=== PATIENT | male | born 1985 | race Caucasian/White ===

== ENCOUNTER 2017-01-31 11:06 | Emergency (ER) | payer OTHER ==
[~2017-01-31] VITALS: Ht 172.7 cm; Wt 81.6 kg
[2017-01-31 11:12] VITALS: BP 162/104
--- NOTE | 2017-01-31 11:24 | NUR ---
Patient ambulated to bed 12. RN evaluating patient at bedside.
--- NOTE | 2017-01-31 11:25 | NUR ---
PATIENT PRESENTS TO ED WITH c/o partial amputation right 5th distal digit tip s/p car weeks slammed down on digit while pt working on car x yesterday pulsating pain hx---esrd (dialysis m,w,f) LUE A/V fistula, htn, rx---hydralazine, lisinopril, renavite; DENIES N/V/D; SKIN IS PINK/WARM/DRY; AAOX4 WITH EVEN AND STEADY GAIT; LUNGS CLEAR BL; HR EVEN AND REGULAR; PT DENIES ANY FEVER, CP, SOB, OR COUGH AT THIS TIME; PATIENT STATES PAIN OF 4/10 AT THIS TIME; VSS; PATIENT POSITIONED FOR COMFORT; HOB ELEVATED; BEDRAILS UP X2; BED DOWN. ER MD MADE AWARE OF PT STATUS.
--- NOTE | 2017-01-31 11:32 | NUR ---
obstetrics tech at bedside.
--- NOTE | 2017-01-31 12:07 | NUR ---
Dr. Rocha evaluating patient at bedside.
[2017-01-31] MEDS ORDERED: BACITRACIN OINT 500 UNITS/GM PKT TP ONE (12:15)
[2017-01-31] MEDS ORDERED: KETOROLAC 60 MG/2 ML VIAL IM ONE (12:15)
[2017-01-31 12:46] VITALS: BP 145/94
--- NOTE | 2017-01-31 12:46 | NUR ---
Patient discharged with v/s stable. Written and verbal after care instructions given and explained. Patient alert, oriented and verbalized understanding of instructions. Ambulatory with steady gait. All questions addressed prior to discharge. ID band removed. Patient advised to follow up with PMD. Rx of NORCO, MOTRIN given. Patient educated on indication of medication including possible reaction and side effects. Opportunity to ask questions provided and answered.
== END 2017-01-31 12:46 | disposition home or self-care (01) ==
LOC: MED 11:06
DX: S69.81XA Other specified injuries of right wrist, hand and finger(s), initial encounter (principal); E11.9 Type 2 diabetes mellitus without complications; I10 Essential (primary) hypertension; X58.XXXA Exposure to other specified factors, initial encounter; Y93.89 Activity, other specified; Y92.89 Other specified places as the place of occurrence of the external cause; Y99.8 Other external cause status
CPT/HCPCS: 73140; 90471; 90715; 96372; 99284; J1885; Q0092

== ENCOUNTER 2018-06-21 10:55 | Inpatient (IN) | payer OTHER ==
[~2018-06-21] VITALS: Ht 172.7 cm; Wt 89.1 kg
[2018-06-21 10:59] VITALS: BP 203/125
--- NOTE | 2018-06-21 11:40 | NUR ---
PT AMBULATED TO ER BED 12
[2018-06-21] MEDS ORDERED: KETOROLAC 30 MG/ML VIAL IVP ONE (12:10)
[2018-06-21] MEDS ORDERED: NACL 0.9% 1,000 ML IV ONE (12:10)
--- NOTE | 2018-06-21 12:24 | NUR ---
Confirmed 1000ml ns bolus Dr. Greer due to pt being on dialysis, per Dr. Greer, he is aware and would still like to give the fluids
--- NOTE | 2018-06-21 12:30 | NUR ---
PT IS ANURIC, UNABLE TO COLLECT URINE SAMPLE. DR. MCKEON MADE AWARE AND WILL CANCEL ORDER.
[2018-06-21 12:35] LABS: BASOPHILS # (AUTO) 0.1 K/uL (0.00-0.22); BASOPHILS % (AUTO) 1.2 % (0.0-2.0); EOSINOPHILS # (AUTO) 0.3 K/uL (0-0.4); EOSINOPHILS % (AUTO) 5.5 % (0.0-4.0); HEMATOCRIT 33.8 % (36-52); HEMOGLOBIN 11.6 g/dL (12.0-18.0); LYMPHOCYTES # (AUTO) 1.2 K/uL (2.0-11.5); LYMPHOCYTES % (AUTO) 19.3 % (20.5-51.1); MEAN CORPUSCULAR HEMOGLOBIN 32 pg (27-31); MEAN CORPUSCULAR HGB CONC 34 g/dL (33-37); MEAN CORPUSCULAR VOLUME 92.7 fL (80-94); MONOCYTES # (AUTO) 0.5 K/uL (0.8-1.0); MONOCYTES % (AUTO) 7.7 % (1.7-9.3); NEUTROPHILS # (AUTO) 4.1 K/uL (1.8-7.7); NEUTROPHILS % (AUTO) 66.3 % (42.2-75.2); PLATELET COUNT (AUTO) 113 K/uL (140-450); RED BLOOD CELL COUNT(AUTO) 3.64 MIL/uL (4.20-6.10); RED CELL DISTRIBUTION WIDTH 14.8 % (11.6-13.7); WHITE BLOOD COUNT (AUTO) 6.2 K/uL (4.8-10.8)
[2018-06-21] MEDS ORDERED: PIPERACILLIN/TAZOBACTAM 3.375 GM in DEXTROSE 5% 50 ML IV ONE (12:40)
--- NOTE | 2018-06-21 12:48 | NUR ---
C/O TESTICULAR PAIN X3 DAYS. PT DENIES N/V/D/FEVER OR INJURY/TRAUMA. PT HAS HD FISTULA TO L UPPER ARM AND IS ANURIC. SCROTUM IS RED/SWOLLEN AND HAS WHITE FLUID FILLED ABCESS-LIKE BUMPS TO L SIDE.
[2018-06-21 12:50] LABS: ALBUMIN 3.5 g/dL (3.4-5.0); TOTAL BILIRUBIN 0.5 mg/dL (0.0-1.0)
[2018-06-21 12:53] LABS: ANION GAP 14.8 (8-16); CREATININE 11.7 mg/dL (0.7-1.3)
[2018-06-21 12:54] LABS: POTASSIUM 5.8 mmol/L (3.5-5.1)
[2018-06-21] MEDS ORDERED: PIPERACILLIN/TAZOBACTAM 3.375 GM VIAL IV ONE (13:01)
[2018-06-21] MEDS ORDERED: PATIROMER CALCIUM SORBITEX 8.4 GM PKT PO ONE ×2 (14:30→16:50)
--- NOTE | 2018-06-21 15:42 | NUR ---
PENDING TRANSFER TO [facility]
--- NOTE | 2018-06-21 16:20 | NUR ---
PT WILL BE ADMITTED TO [facility]
[2018-06-21] MEDS ORDERED: ACETAMINOPHEN 325 MG TAB PO PRN (16:55)
[2018-06-21] MEDS ORDERED: LORazepam 2 MG/ML VIAL IM/IVP PRN (16:55)
[2018-06-21] MEDS ORDERED: HYDROcodone/APAP 5/325 MG 1 TAB TAB PO PRN (16:55)
[2018-06-21] MEDS ORDERED: DOCUSATE SODIUM 100 MG GELCAP PO PRN (16:55)
[2018-06-21] MEDS ORDERED: ONDANSETRON 4 MG/2 ML VIAL IM/IVP PRN (16:55)
--- NOTE | 2018-06-21 17:20 | NUR ---
PT ARRIVED TO FLOOR FROM ER IN WHEELCHAIR, PT AMBULATES FROM HALLWAY TO BED WITH STEADY GAIT, PT ORIENTED TO ROOM AND FLOOR, PT AWAKE ALERT, RESP EVEN UNLABORED, SKIN WARM DRY COLOR WNL, PLAN OF CARE REVIEWED, ALL SAFETY MEASURES IN PLACE, WILL CONTINUE TO MONTIOR
--- NOTE | 2018-06-21 17:25 | NUR ---
Patient will be admitted to care of DR. WARE. Admited to MED SURG. Will go to room 125B. Belongings list completed. Report to JATIN GIANG.
[2018-06-21 17:40] VITALS: BP 178/116
--- NOTE | 2018-06-21 18:00 | NUR ---
DR HONG AT BEDSIDE.
--- NOTE | 2018-06-21 18:29 | NUR ---
DR TAVERA PAGED AND RECEIVED HD ORDER.
--- NOTE | 2018-06-21 18:30 | NUR ---
[facility] NURSE CALLED FOR NEW ORDER FOR DIALYSIS TODAY.
[2018-06-21 18:40] LABS: MAGNESIUM 2.6 mg/dL (1.8-2.4); PHOSPHORUS 6.7 mg/dL (2.5-4.9); THYROID STIMULATING HORMONE 2.71 uIU/mL (0.34-3.74)
[2018-06-21 18:47] LABS: POTASSIUM 5.6 mmol/L (3.5-5.1)
[2018-06-21] MEDS ORDERED: CINA60TA1 PO (18:55)
[2018-06-21] MEDS ORDERED: PHO667 PO (18:55)
[2018-06-21] MEDS ORDERED: VITA1TAB44 PO (18:55)
[2018-06-21] MEDS ORDERED: HYDR-1098 PO (18:55)
[2018-06-21 19:01] LABS: ANION GAP 18.2 (8-16); CARBON DIOXIDE 26.4 mmol/L (21-32)
[2018-06-21] MEDS ORDERED: ZOLPIDEM 5 MG TAB PO PRN (19:15)
--- NOTE | 2018-06-21 19:35 | NUR ---
RECEIVED REPORT FROM DAY SHIFT RN. PATIENT IS ALERT AND ORIENTED. BP AND POTASSIUM ARE ELEVATED. PATIENT WILL RECEIVE DIALYSIS TONIGHT. CALL LIGHT IN REACH AND BED IN LOW POSITION. WILL CONTINUE TO MONITOR.
[2018-06-21 20:00] VITALS: BP 158/97
[2018-06-21] MEDS: MORPHINE SULFATE 2 MG/ML SYR IVP PRN (20:43)
--- NOTE | 2018-06-21 20:43 | NUR ---
PATIENT C/O 09/01 PAIN. MEDICATED WITH PRN MEDICATIONS. OTHERWISE PATIENT IS STABLE.
--- NOTE | 2018-06-21 21:30 | NUR ---
DIALYSIS NURSE ARRIVED AND IS DIALYZING PATIENT. NO SIGNS OF DISTRESS ON RA. WILL CONTINUE TO MONITOR.
[2018-06-22] VITALS: BP 134/87
[2018-06-22] MEDS ORDERED: CLINDAMYCIN 600 MG in DEXTROSE 5% 50 ML IV SCH ×2
--- NOTE | 2018-06-22 00:45 | NUR ---
DIALYSIS COMPLETE. 4L OF FLUID REMOVED. BP 134/87 DOWN FRO M158/97 PRIOR TO DIALYSIS. NO SIGNS OF DISTRESS ON RA. WILL CONTINUE TO MONITOR.
[2018-06-22] MEDS: MORPHINE SULFATE 2 MG/ML SYR IVP PRN ×5 (01:53→21:04)
[2018-06-22] MEDS: CLINDAMYCIN PHOS 600MG/D5W PM 50 ML IV SCH ×4 (01:54→17:02)
[2018-06-22] MEDS: NACL 0.9% 1,000 ML IV SCH ×2 (01:54→17:01)
--- NOTE | 2018-06-22 02:18 | NUR ---
PATIENT C/O 10/10 PAIN AFTER AMBULATING. MEDICATED PER PRN ORDERS. PATIENT NO RESTING IN BED, NO SIGNS OF DISTRESS ON RA. SAFETY PRECAUTIONS IN PLACE.
--- NOTE | 2018-06-22 04:30 | NUR ---
PATIENT SLEEPING. NO SIGNS OF DISTRESS ON RA.
--- NOTE | 2018-06-22 06:00 | NUR ---
PATIENT RESTING IN BED. C/O PAIN. WILL MEDICATE PER PRN ORDERS
[2018-06-22 06:52] LABS: ANION GAP 13.6 (8-16); POTASSIUM 4.6 mmol/L (3.5-5.1)
[2018-06-22 06:56] LABS: CHOL/HDL RATIO 3.2 (1-4.5)
[2018-06-22 06:59] LABS: PHOSPHORUS 7.3 mg/dL (2.5-4.9)
[2018-06-22 07:28] LABS: BASOPHILS # (AUTO) 0.1 K/uL (0.00-0.22); BASOPHILS % (AUTO) 1.4 % (0.0-2.0); EOSINOPHILS # (AUTO) 0.5 K/uL (0-0.4); EOSINOPHILS % (AUTO) 10.4 % (0.0-4.0); HEMATOCRIT 35.7 % (36-52); HEMOGLOBIN 12.2 g/dL (12.0-18.0); LYMPHOCYTES # (AUTO) 1.3 K/uL (2.0-11.5); LYMPHOCYTES % (AUTO) 25.8 % (20.5-51.1); MEAN CORPUSCULAR HEMOGLOBIN 32 pg (27-31); MEAN CORPUSCULAR HGB CONC 34 g/dL (33-37); MEAN CORPUSCULAR VOLUME 92.8 fL (80-94); MONOCYTES # (AUTO) 0.4 K/uL (0.8-1.0); MONOCYTES % (AUTO) 7.8 % (1.7-9.3); NEUTROPHILS # (AUTO) 2.7 K/uL (1.8-7.7); NEUTROPHILS % (AUTO) 54.6 % (42.2-75.2); PLATELET COUNT (AUTO) 113 K/uL (140-450); RED BLOOD CELL COUNT(AUTO) 3.85 MIL/uL (4.20-6.10); RED CELL DISTRIBUTION WIDTH 14.8 % (11.6-13.7); WHITE BLOOD COUNT (AUTO) 4.9 K/uL (4.8-10.8)
--- NOTE | 2018-06-22 07:30 | NUR ---
REPORT RECIEVED FROM NURSE ROSIO, PT ASLEEP, EASILY AROUSABLE TO A/O APPROPRIATE AND ABLE TO COMMUNICATE NEEDS. DENIES PAIN, VISITORS AT BEDSIDE. CALL LIGHT, PERSONAL ITEMS WITHIN REACH, SAFETY MEASURES IN PLACE, NO S/S OF ACUTE DISTRESS AT THIS TIME, WILL CONTINUE TO MONITOR
--- NOTE | 2018-06-22 07:30 | NUR ---
GAVE BEDSIDE REPORT TO DAY SHIFT RN. ENDORSING PATIENT IN STABLE CONDITION.
[2018-06-22 07:32] LABS: CREATININE 7.9 mg/dL (0.7-1.3)
[2018-06-22] MEDS: CALCIUM ACETATE 667 MG TAB PO SCH ×3 (07:59→17:02)
[2018-06-22 08:00] VITALS: BP 160/89
[2018-06-22] MEDS ORDERED: CALCIUM ACETATE 667 MG TAB PO SCH (08:00)
--- NOTE | 2018-06-22 08:30 | NUR ---
PATIENT HAS BEEN SCREENED AND CATEGORIZED MODERATE NUTRITION RISK. PATIENT WILL BE SEEN WITHIN 3-5 DAYS OF ADMISSION. 06/24/18CRISTY [address]
[2018-06-22] MEDS ORDERED: CINACALCET 30 MG TAB PO SCH ×2 (09:00)
[2018-06-22] MEDS ORDERED: hydrALAZINE 25 MG TAB PO SCH ×2 (09:00)
[2018-06-22] MEDS ORDERED: VIT-B COMP/VIT-C/FOLIC ACID 1 TAB PO SCH ×2 (09:00)
--- NOTE | 2018-06-22 09:26 | NUR ---
Called [facility] and spoke with Nitin. He said [facility] will continue to look for placement for this patient and as soon as they have a bed, they will contact or the floor if it is after hours.
--- NOTE | 2018-06-22 09:40 | NUR ---
PT AWAKE A/O AND APPROPRIATE, ABLE TO COMMUNICATE NEEDS. PER PT PAIN TOLERABLE AT THIS TIME, INTERMITTENT WITH MOVEMENT. CALL LIGHT, PERSONAL ITEMS WITHIN REACH, SAFETY MEASURES IN PLACE, NO S/S OF ACUTE DISTRESS AT THIS TIME, WILL CONTINUE TO MONITOR
--- NOTE | 2018-06-22 10:43 | NUR ---
AEROBIC/ANAEROBIC CULTURE OBTAINED FROM TESTICLE AND DELIVERED TO LAB, PT TOLERATED COLLECTION WELL. PT REMAIN A/O APPROPRIATE AND ABLE TO COMMUNICATE NEEDS, CALL LIGHT, PERSONAL ITEMS WITHIN REACH, SAFETY MEASURES IN PLACE, NO S/S OF ACUTE DISTRESS AT THIS TIME, WILL CONTINUE TO MONITOR.
--- NOTE | 2018-06-22 13:30 | NUR ---
PT SLEEPING AT THIS TIME, EASILY AROUSABLE TO VERBAL STIMULI TO A/O, VISITORS AT BEDSIDE. CALL LIGHT, PERSONAL ITEMS WITHIN REACH, SAFETY MEASURES IN PLACE, NO S/S OF ACUTE DISTRESS AT THIS TIME, WILL CONTINUE TO MONITOR
--- NOTE | 2018-06-22 14:44 | NUR ---
CALLED DR WRIGHT OFFICE TO FOLLOW UP ON CONSULT PER CHARGE NURSE. TO MAKE ROUNDS.
--- NOTE | 2018-06-22 15:59 | NUR ---
PAGED [facility] FOR PT'S SCHEDULED HD TOMORROW 06/23/2018. AWAITING FOR CALL BACK.
--- NOTE | 2018-06-22 16:22 | NUR ---
RECEIVED A CALL FROM NANCY FROM [facility], . SHE SAID THEY WILL ARE LOOKING AT TRANSFERRING THIS PATIENT TO [facility]. , CONTRACTER FACILITY. [address]ESS [address] [address] [address] PHONE [phone]. AFTER HOURS FOR [facility] IS [phone]. THE ACCEPTING PHYSICIAN IS DR. ACEVEDO AND DR. DENNY. I TOLD NANCY FROM [facility] TO CALL THE FLOOR WHEN THEY GET A BED. GAVE HER THE PHONE NUMBER. I INFORMED [employer] TRANSFER COORDINATOR NURSE. PER NANCY, PUT [facility] ON WILL CALL AUTH [id number]. I INFORMED DR. HONG.
--- NOTE | 2018-06-22 16:30 | NUR ---
PT ASLEEP VISITORS AT BEDSIDE, PT PAIN MANAGED WITH MEDICATION, COMFORTABLE AT REST. CALL LIGHT, PERSONAL ITEMS WITHIN REACH, SAFETY MEASURES IN PLACE, NO S/S OF ACUTE DISTRESS AT THIS TIME, WILL CONTINUE TO MONITOR
[2018-06-22 16:50] VITALS: BP 165/90
--- NOTE | 2018-06-22 16:53 | NUR ---
RECEIVED A CALL FROM NANCY ([facility]) THAT THEY ARE DIVERTING PT TO [facility], ADDRESS: [address] [place], [place] [id number], TEL #: [phone]. NO BED AVAILABLE AT THIS TIME. NANCY STATED THEY WILL CALL THE NURSES STATION WHEN BED BECOMES AVAILABLE. NURSE ASSIGNED MADE AWARE.
--- NOTE | 2018-06-22 17:15 | NUR ---
PT A/O APPROPRIATE AND ABLE TO COMMUNICATE NEEDS, VISITORS AT BEDSIDE, NOTIFIED OF PENDING TRANSFER TO CONTRACTED FACILITY, PT VERBALIZES UNDERSTANDING AND IS AGREEABLE. NO S/S OF ACUTE DISTRESS NOTED AT THIS TIME, CALL LIGHT, PERSONAL ITEMS WITHIN REACH, SAFETY MEASURES IN PLACE, WILL CONTINUE TO MONITOR.
--- NOTE | 2018-06-22 19:00 | NUR ---
RECEIVED A CALL FROM YORDY FROM [facility] THAT THEY HAVE A BED FOR PT AT [facility] ROOM 7320. TO CALL FOR REPORT: TEL#: [phone]. [facility] ON WILL CALL, AUTH #: [id number]. ENDORSED TO NEXT SHIFT CHARGE NURSE AND ASSIGNED NURSE TO CONTINUE WITH THE DISCHARGE PROCESS.
[2018-06-22] MEDS ORDERED: CLIN300C2 IV (19:06)
[2018-06-22] MEDS ORDERED: HYDR-4420 PO (19:06)
--- NOTE | 2018-06-22 19:44 | NUR ---
REPORT ENDORSED TO NURSE ROSIO, PT REMAIN A/O APPROPRIATE AND ABLE TO COMMUNICATE NEEDS, NO S/S OF ACUTE DISTRESS NOTED AT THIS TIME, CALL LIGHT, PERSONAL ITEMS WITHIN REACH, SAFETY MEASURES IN PLACE.
--- NOTE | 2018-06-22 19:45 | NUR ---
RECEIVED BEDSIDE REPORT FROM DAY SHIFT RN. PATIENT STABLE, NO SIGNS OF DISTRESS ON RA.
[2018-06-22 20:59] VITALS: BP 143/93
--- NOTE | 2018-06-22 21:38 | NUR ---
GAVE REPORT TO RAHAT URBAN AT TRANSFER FACILITY. SEE DISCHARGE INSTRUCTIONS FOR ADDITIONAL DETAILS.
--- NOTE | 2018-06-22 22:40 | NUR ---
GAVE REPORT TO [facility] TRANSPORT FOR PATIENT TRANSFER TO ANOTHER FACILITY. PATIENT STABLE, AMBULATED TO [facility] WEARING HIS OWN CLOTHES. PERIPHERAL IV 20G IN RIGHT AC IN PLACE DUE TO RECEIVING FACILITY REQUEST. PATIENT HAD HIS PROPERTY BAG IN HAND AT TRANSFER.
[2018-06-24 20:25] LABS: HEPATITIS A ANTIBODY IGM Negative (Negative); HEPATITIS B CORE AB TOTAL Negative (Negative); HEPATITIS B SURFACE ANTIBODY Reactive (.); HEPATITIS B SURFACE ANTIGEN Negative (Negative)
== END 2018-06-22 22:20 | disposition short-term general hospital (02) | DRG 727 ==
LOC: MED 10:55 → MTU 16:51
PROVIDERS: ADMIT General Practice; ATTEND General Practice
PROC: 5A1D70Z Performance of Urinary Filtration, Intermittent, Less than 6 Hours Per Day (ICD-10-PCS; principal; 2018-06-21)
DX: N49.2 Inflammatory disorders of scrotum (principal); I50.43 Acute on chronic combined systolic (congestive) and diastolic (congestive) heart failure; N17.0 Acute kidney failure with tubular necrosis; N18.6 End stage renal disease; I13.2 Hypertensive heart and chronic kidney disease with heart failure and with stage 5 chronic kidney disease, or end stage renal disease; N25.81 Secondary hyperparathyroidism of renal origin; E83.39 Other disorders of phosphorus metabolism; E11.22 Type 2 diabetes mellitus with diabetic chronic kidney disease; E87.5 Hyperkalemia; Z80.0 Family history of malignant neoplasm of digestive organs; I16.0 Hypertensive urgency; D50.9 Iron deficiency anemia, unspecified; E83.41 Hypermagnesemia; E66.9 Obesity, unspecified; L72.0 Epidermal cyst; R59.1 Generalized enlarged lymph nodes; Z99.2 Dependence on renal dialysis; Z79.899 Other long term (current) drug therapy; Z68.30 Body mass index [BMI] 30.0-30.9, adult
CPT/HCPCS: 36415; 71045; 76870; 80048; 80053; 83036; 83605; 83690; 83735; 83880; 84100; 84443; 84484; 85025; 85610; 85730; 86704; 86706; 86708; 86709; 86803; 87040; 87070; 87075; 87081; 87186; 87205; 87340; 90935; 93005; 96365; 96375; 99285; J1885; J2270; J2543; J3490; J7030; J7060; Q0092

== ENCOUNTER 2018-08-06 11:25 | Emergency (ER) | payer OTHER ==
[~2018-08-06] VITALS: Ht 175.3 cm; Wt 90.3 kg
[~2018-08-06 11:25] MED LIST: CINA60TA1 PO; CLIN300C2 IV; HYDR-4420 PO; PHO667 PO; VITA1TAB44 PO
[2018-08-06 11:29] VITALS: BP 180/130
--- NOTE | 2018-08-06 11:35 | NUR ---
BIB SELF. AAO X4 C/O LOW BACK PAIN RADIATING TO RT BUTTOCKS AND RT THIGH. PT STATES THAT HE FELT LIKE HIS BACK SNAPPED UPON STEPPING ON SOMEONE'S FOOT BACK IN APRIL AND THE PAIN IS WORSENING TIL NOW. PT TOOK TYLENOL AT 0630 AM WITH RELIEF FOR THE FIRST 2 HOURS AND ICY HOT PATCH APPLIED WITH NO RELIEF. PT HAS STEADY GAIT. +CMS TO LACY LEGS. ER TO EVALUATE PT.
--- NOTE | 2018-08-06 11:54 | NUR ---
Dr. Monahan evaluating patient at bedside.
[2018-08-06] MEDS ORDERED: DEXAMETHASONE 10 MG/ML VIAL IM ONE (12:00)
[2018-08-06] MEDS ORDERED: MORPHINE SULFATE 4 MG/ML SYR IM ONE (12:00)
--- NOTE | 2018-08-06 12:21 | NUR ---
Dr. Monahan evaluating patient at bedside.
--- NOTE | 2018-08-06 13:12 | NUR ---
IM MORPHINE WAS GIVEN ORDERED FOR PAIN. PT DENIES ANY PAIN AT THIS TIME. PT TEACHING OF DROWSINESS A SIDE EFFECT OF MORPHINE. PT VERBALIZES UNDERSTANDING. PT STATES THAT HE WILL CALL TRANSPORTATION SERVICE, [facility], TO TAKE HIM HOME.
[2018-08-06 13:18] VITALS: BP 144/90
--- NOTE | 2018-08-06 13:18 | NUR ---
Patient discharged with v/s stable. Written and verbal after care instructions given and explained. Patient alert, oriented and verbalized understanding of instructions. Ambulatory with steady gait. All questions addressed prior to discharge. ID band removed. Patient advised to follow up with PMD. Rx of Tramadol Hydrochloride given. Patient educated on indication of medication including possible reaction and side effects. Opportunity to ask questions provided and answered.
== END 2018-08-06 13:18 | disposition home or self-care (01) ==
LOC: MED 11:25
DX: S39.012A Strain of muscle, fascia and tendon of lower back, initial encounter (principal); I12.0 Hypertensive chronic kidney disease with stage 5 chronic kidney disease or end stage renal disease; N18.6 End stage renal disease; Z79.899 Other long term (current) drug therapy; Z99.2 Dependence on renal dialysis; X58.XXXA Exposure to other specified factors, initial encounter; Y93.89 Activity, other specified; Y92.89 Other specified places as the place of occurrence of the external cause; Y99.8 Other external cause status
CPT/HCPCS: 96372; 99283; J1100; J2270

== ENCOUNTER 2019-02-26 12:23 | Inpatient (IN) | payer OTHER ==
[~2019-02-26] VITALS: Ht 175.3 cm; Wt 85.7 kg
[2019-02-26 12:42] VITALS: BP 143/87
--- NOTE | 2019-02-26 12:48 | NUR ---
Patient transferred to bed 3 via wheelchair by triage nurse. RN evaluating patient at bedside.
[2019-02-26] MEDS ORDERED: MORPHINE SULFATE 4 MG/ML SYR IVP ONE ×4 (13:00→16:35)
[2019-02-26] MEDS ORDERED: ONDANSETRON 4 MG/2 ML VIAL IVP ONE (13:00)
--- NOTE | 2019-02-26 13:24 | NUR ---
WHILE CHANGING TIRES IN A SQUAT POSITION ; FELL BACKWARDS WITH TIRE AND FELT POP IN KNEES----OBVIOUS DISLOCATIONS.PT AWAKE ,ALERT.EQUAL STEADY PULSE ON ALL UE/LE. RIGHT ELBOW CONTUSION HX--ESRD ( M W F), HTN, RX--
[2019-02-26 16:03] LABS: BASOPHILS % (AUTO) 0.5 % (0.0-2.0); EOSINOPHILS # (AUTO) 0.2 K/uL (0-0.4); EOSINOPHILS % (AUTO) 2.9 % (0.0-4.0); HEMATOCRIT 32.1 % (36-52); HEMOGLOBIN 10.9 g/dL (12.0-18.0); LYMPHOCYTES # (AUTO) 0.8 K/uL (2.0-11.5); LYMPHOCYTES % (AUTO) 11.8 % (20.5-51.1); MEAN CORPUSCULAR HEMOGLOBIN 33 pg (27-31); MEAN CORPUSCULAR HGB CONC 34 g/dL (33-37); MEAN CORPUSCULAR VOLUME 97.9 fL (80-94); MONOCYTES # (AUTO) 0.3 K/uL (0.8-1.0); MONOCYTES % (AUTO) 5.2 % (1.7-9.3); NEUTROPHILS # (AUTO) 5.2 K/uL (1.8-7.7); NEUTROPHILS % (AUTO) 79.6 % (42.2-75.2); PLATELET COUNT (AUTO) 127 K/uL (140-450); RED BLOOD CELL COUNT(AUTO) 3.28 MIL/uL (4.20-6.10); RED CELL DISTRIBUTION WIDTH 13.9 % (11.6-13.7); WHITE BLOOD COUNT (AUTO) 6.5 K/uL (4.8-10.8)
--- NOTE | 2019-02-26 16:23 | NUR ---
dr zarate at bedside.
[2019-02-26 16:43] LABS: ALBUMIN 3.5 g/dL (3.4-5.0); ASPARTATE AMINOTRANSFERASE 18 U/L (15-37); CARBON DIOXIDE 28.5 mmol/L (21-32); CHLORIDE 98 mmol/L (98-107); GFR ARICAN-AMERICAN 6 mL/min (>90); GLUCOSE 102 mg/dL (74-106); SODIUM SERUM 137 mmol/L (136-145); TOTAL BILIRUBIN 0.4 mg/dL (0.0-1.0); UREA NITROGEN, BLOOD 55 mg/dL (7-18)
--- NOTE | 2019-02-26 16:50 | NUR ---
Critical lab of 8.5 received from lab, Dr. House made aware, verbal order for repeat draw. Lab made aware.
[2019-02-26 17:21] LABS: PROTHROMBIN TIME 10.2 secs (10.8-13.4)
[2019-02-26] MEDS ORDERED: oxyCODONE/APAP 5/325 MG 1 TAB TAB PO ONE (17:50)
--- NOTE | 2019-02-26 18:07 | NUR ---
Critical lab called potassium 8.[address] House made aware. Dr. House requesting to call leather goods ii assembler.
[2019-02-26] MEDS ORDERED: INSULIN REGULAR, HUMAN 100 UNIT/ML VIAL IVP ONE (18:20)
[2019-02-26] MEDS ORDERED: DEXTROSE 50% 50 ML SYR IVP ONE (18:20)
[2019-02-26] MEDS ORDERED: SODIUM BICARBONATE 8.4% PFS 50 MEQ/50 ML SYR IVP ONE (18:20)
[2019-02-26] MEDS ORDERED: LISI10TA11 PO (18:24)
[2019-02-26] MEDS ORDERED: ACETAMINOPHEN 325 MG TAB PO PRN (18:40)
[2019-02-26] MEDS ORDERED: ONDANSETRON 4 MG/2 ML VIAL IVP PRN (18:40)
--- NOTE | 2019-02-26 19:14 | NUR ---
PLACED KNEE IMMOBOLIZER ON PT'S LEFT AND RIGHT KNEE AND THEN GAVE PT CRUTCHES
--- NOTE | 2019-02-26 19:24 | NUR ---
report given to julianne.
--- NOTE | 2019-02-26 19:25 | NUR ---
PATIENT ALERT AND ORIENTED, BREATHING EVEN AND UNLABORED. FAMILY AT BEDSIDE.
[2019-02-26 19:48] LABS: MAGNESIUM 2.3 mg/dL (1.8-2.4); PHOSPHORUS 7.2 mg/dL (2.5-4.9); THYROID STIMULATING HORMONE 3.33 uIU/mL (0.34-3.74)
--- NOTE | 2019-02-26 19:55 | NUR ---
PATIENT CAME IN FROM ER VIA ER [facility]. STAFF AND CHARGE NURSE ASSISTED PATIENT TO ICU BED FROM ER [facility]. NURSE TO BEDSIDE WHEN PATIENT WAS ALREADY IN ICU BED. NO INJURIES NOTED. PATIENT ABLE TO ASSIST MOVING LEFT AND RIGHT IN BED WITH THE PRESENCE OF 2 KNEE IMMOBILIZERS PLACED ON BILATERALLY. ROOM AIR.PERRLA. PUPILS SIZE 2. REACTIVE. NO SOB OR DISTRESS NOTED. SKIN COLOR WNL. VSS. HR REGULAR. LUNG SOUNDS CLEAR. RESPIRATIONS SYMMETRICAL AND UNLABORED. PATIENT HAS FISTULA FOR DIALYSIS IN LEFT UPPER ARM. IV ACCESS RIGHT AC 22G. BOTH KNEES SWOLLEN BLACK AND BLUE. ABLE TO MOVE BOTH FEEL WITH GOOD SKIN COLOR. AAOX4. ABLE TO MAKE NEEDS KNOWN. STATES WAS CHANGE A BIG TRUCK TIRE AND TIRE CAME OFF AND FELL ON KNEES STATES HEARD A POP STATES VELÁSQUEZ STATED "TENDONS POPPED" BP CUFF ON RIGHT ARM. DIME SIZE RED/NEW ABRASION TO RIGHT OUTER ELBOW WITH PINK SKIN SURROUNDING. REPORT FROM ER HUY NURSE AT BEDSIDE. GIRLFRIEND DENNIS PRESENT. SIGNED PAPER WITH HAYLEE OF BELONGINGS STATING THAT GIRLFRIEND TOOK BELONGINGS BUT ONLY KEPT PHONE AT BEDSIDE, AGRICULTURE ENGINEER AT BEDSIDE AND GLASSESS AT BEDSIDE. BOTH ARE BLACK IN COLOR. MRSA SWABS TAKEN BY LION NURSE. NURSE BS WAS JUST TAKEN AND WAS 67. GIRLFRIEND TOLD OK TO GIVE PROPER DIET MEDICATION FOR PATIENT. WAS EATING FOOD IN ER. CRITICAL POTASSIUM PER ER REPORT SO GETTING STAT DIALYSIS. PATIENT WAS REFERRED TO [facility]. HAS HAD FISTULA X8 YEARS. 2009 [facility] FOR DIALYSIS ARRIVES AT BEDSIDE STATES VELÁSQUEZ PERSONALLY CALLED AND STATES NEED TO BE AT HOSPITAL WITHIN 30 MINUTES PER LINDSAY". EDUCATION ON DIET GIVEN AND PROPER FOODS. 2000 CALLED FAMILY WHO WAS IN WAITING ROOM. CRUTCHES PRESENT FROM ER. BOWEL SOUNDS ACTIVE IN ALL 4 QUAD. BED IN LOWEST POSITION. VSS. ABLE TO MAKE NEEDS KNOWN Addendum: 02/27/19 at 0736 by Betzy Ewing RN NOTED RIGHT DIME SIZE ABRASION ON RIGHT ELBOW. STATES ER ALREADY TOOK PICTURES OF IT AND PLACED IN CHART. TOOK PICTURES OF ABRASION AND OF BILATERAL KNEES FOR OUR REPORTS. WILL CONTINUE TO MONITOR.
[2019-02-26 20:00] VITALS: BP 134/77
--- NOTE | 2019-02-26 20:00 | NUR ---
Patient will be admitted to care of DR WARE. Admited to ICU. Will go to room 2. Belongings list completed. Report to GERARDO GIANG.
[2019-02-26] MEDS: DOCUSATE SODIUM 100 MG GELCAP PO SCH (21:00)
--- NOTE | 2019-02-26 21:22 | NUR ---
PATIENT TURNING HSIEH COLOR. STOMACH PAIN. RESTLESS. INCREASED RESPIRATIONS. ICE WATER GIVEN. CHECKED BLOOD SUGAR 148. BED FROM DIALYSIS CALLED HIS PERSON AND STATES TURN DOEN DIALYSIS. STATES "DISEQUILIBRIUM SYNDROME" STATES PATIENT CREATININE AND BUN TOO ELEVATED AND NEEDS IT SLOWED DOWN PER HIS EVENTS TRAFFIC CONTROLLER. PATIENT DENIES ITCHING AT THIS TIME. 2124 PATIENT STATES "I FEEL BETTER "MUCH BETTER." SPOKE WITH MD AT THIS TIME WHO STATES OK TO GIVE MEDS WHILE ON DIALYSIS. PATIENT STRONGLY DENIES COLACE AT THIS TIME. STATES "THERE IS NO BATHROOM, ILL DO IT AT HOME" EDUCATED ON PROS AND CONS BY DIALYSIS NURSE AND PATIENTS NURSE. PATIENT STATES HE VERBALLY UNDERSTANDS BUT STILL DENIES. OK TO GIVE HIM HEPARIN. 2039 CALLED MD WHO STATES OK TO GIVE HEPARIN TO PATIENT AT THIS TIME NOTIFIED HIM LOW PLATELET COUNT 127. WHILE DIALYSIS RUNNING. 2019 ITCHY AT THIS TIME. WILL CONTINUE TO MONITOR. VSS.
[2019-02-26] MEDS: NACL 0.9% 1,000 ML IV SCH (21:35)
[2019-02-26 22:00] VITALS: BP 118/69
--- NOTE | 2019-02-26 22:25 | NUR ---
[facility] DIALYS[facility] STATES IN PRIVATE TO RN, HE HAD MARCK RAM BROUGHT TO HIM BY GIRLFRIEND. STATES ATE THE WHOLE BURGER, HALF A SMALL MORRISON. AND A LEMONADE DRINK. STATES NON- COMPLIANT WITH DIET. ENDORSE TO MD. MONTOYA AND NURSE GERARDO EDUCATED PATIENT AND GIRLFRIEND ABOUT THE IMPORTANCE OF PROPER DIET HABITS FOR PATIENTS SITUATION. BOTH VERBALLY AGREED AND NODDED THEY UNDERSTOOD. NO QUESTIONS AT THIS TIME. PATIENT PLAYING GAME ON PHONE. NO SOB OR DISTRESS NOTED. VSS AT THIS TIME WILL CONTINUE TO MONITOR.
[2019-02-26] MEDS: HYDROcodone/APAP 7.5/325 MG 1 TAB PO PRN (22:32)
--- NOTE | 2019-02-26 22:44 | NUR ---
PRINTED OUT CBC ,BMP, AND ORDER FOR DIALYSIS AND GAVE TO DIALYSIS NURSE LINDSAY. STATES NOTHING FURTHER NEEDED.
--- NOTE | 2019-02-26 23:15 | NUR ---
2.2 OUTPUT. DIALYSIS ENDED. PATIENTS VSS. NO SOB OR DISTRESS NOTED. WHEN ASKED IF FEELING OK AND IF PAIN MEDICATION HELPED, PATIENT STATES "HELL YEAH" THUMBS UP BY PATIENT.
--- NOTE | 2019-02-26 23:20 | NUR ---
ER BROUGHT OVER PAPER CONSENT FROM ER
[2019-02-27] VITALS (9 sets, daily range): BP systolic 107–146; BP diastolic 50–82
--- NOTE | 2019-02-27 00:09 | NUR ---
DR WALL AT BEDSIDE Addendum: 02/27/19 at 0142 by Betzy Ewing RN PATIENT PLAYING ON PHONE. GIRLFRIEND STILL PRESENT. VSS. NO SOB. NO DISTRESS NOTED.
--- NOTE | 2019-02-27 00:46 | NUR ---
LAB AT BEDSIDE Addendum: 02/27/19 at 0142 by Betzy Ewing RN PATIENT PLAYING ON PHONE. GIRLFRIEND STILL PRESENT. VSS. NO SOB. NO DISTRESS NOTED.
[2019-02-27 01:09] LABS: ANION GAP 12.9 (8-16); CARBON DIOXIDE 33.3 mmol/L (21-32); POTASSIUM 5.2 mmol/L (3.5-5.1)
[2019-02-27 01:11] LABS: CREATININE 7.8 mg/dL (0.7-1.3)
--- NOTE | 2019-02-27 01:32 | NUR ---
FOUND OUT ABOUT CRITICAL LAB VALUE THAT WAS RECORDED AT 0112 BY NURY FROM LAB. CREATININE 7.8. TRENDING DOWN. CALLED MD WALL AND NOTIFIED OF UPDATE. ALSO NOTIFIED OF POTASSIUM 5.2, BUN 27 ALSO TRENDING DOWN. WILL CONTINUE TO MONITOR. VSS. PATIENT PLAYING GAME ON CELL PHONE. GIRLFRIEND DENNIS AT BEDSIDE. NOTIFIED OF NEXT DUE PAIN MEDICATION TIME. WILL CONTINUE TO MONITOR.
[2019-02-27] MEDS: HYDROcodone/APAP 7.5/325 MG 1 TAB PO PRN ×2 (02:33→09:12)
--- NOTE | 2019-02-27 04:12 | NUR ---
PATIENT STILL PLAYING ON PHONE.AAOX4.ABLE TO MAKE NEEDS KNOWN. GIRLFRIEND AT BEDSIDE
[2019-02-27 05:17] LABS: BASOPHILS % (AUTO) 0.8 % (0.0-2.0); EOSINOPHILS # (AUTO) 0.2 K/uL (0-0.4); EOSINOPHILS % (AUTO) 3.5 % (0.0-4.0); HEMATOCRIT 28.9 % (36-52); HEMOGLOBIN 9.8 g/dL (12.0-18.0); LYMPHOCYTES # (AUTO) 1.1 K/uL (2.0-11.5); LYMPHOCYTES % (AUTO) 18.6 % (20.5-51.1); MEAN CORPUSCULAR HEMOGLOBIN 33 pg (27-31); MEAN CORPUSCULAR HGB CONC 34 g/dL (33-37); MEAN CORPUSCULAR VOLUME 98.2 fL (80-94); MONOCYTES # (AUTO) 0.4 K/uL (0.8-1.0); MONOCYTES % (AUTO) 7.6 % (1.7-9.3); NEUTROPHILS # (AUTO) 4.1 K/uL (1.8-7.7); NEUTROPHILS % (AUTO) 69.5 % (42.2-75.2); PLATELET COUNT (AUTO) 133 K/uL (140-450); RED BLOOD CELL COUNT(AUTO) 2.95 MIL/uL (4.20-6.10); RED CELL DISTRIBUTION WIDTH 13.7 % (11.6-13.7); WHITE BLOOD COUNT (AUTO) 5.9 K/uL (4.8-10.8)
[2019-02-27 05:45] LABS: ANION GAP 12.6 (8-16); CARBON DIOXIDE 33.5 mmol/L (21-32); POTASSIUM 5.1 mmol/L (3.5-5.1)
[2019-02-27 05:52] LABS: MAGNESIUM 1.9 mg/dL (1.8-2.4); PHOSPHORUS 6.7 mg/dL (2.5-4.9)
[2019-02-27 05:53] LABS: CHOL/HDL RATIO 4.8 (1-4.5)
--- NOTE | 2019-02-27 06:26 | NUR ---
CALL FROM LAB STATES CREATININE 7.9 PHOSPHORUS 6.7 (LOOKED AT LABS TO CONFIRM BUT LABS STILL PENDING) NOTIFIED DUKE VELÁSQUEZ RESIDENT [id number] "OK" WILL CONTINUE TO MONITOR PER NUPUR
[2019-02-27 06:28] LABS: CREATININE 7.9 mg/dL (0.7-1.3)
--- NOTE | 2019-02-27 06:50 | NUR ---
TRANSFERRED PER OIL ANALYST. TELE BOX SET UP FOR PATIENT. VSS PRIOR TO TRANSFER. PATIENT STABLE. NO INJURIES. NOTIFIED NUPUR OF THE CRITICAL VALUES. MD AWARE AND TRANSFER ORDERS IN PLACE. DENIES QUESTIONS. NO SOB OR S/S OF DISTRESS NOTED. ALL BELONGINGS WITH PATIENT
--- NOTE | 2019-02-27 07:20 | NUR ---
RECEIVED PT A TRANSFER FRO ICU .@0645 . WITH ALL PERSONAL BELONGINGS WITH PT. HAS CRUTCHES . IN STABLE CONDITION. TELE PT. WITH NO C/O ANY PAIN NOTED. HAS IVF INFUSING AT THE RT ACg22. HD PT ,ACCESS ON THE LT UPPER ARM AV SHUNT. WITH LACY KNEE IMMOBILIZER. POSITION WELL IN BED. CALL LIGHT WITHIN REACH. FAMILY AT BEDSIDE. REPORT GIVEN TO AM NURSE IN STABLE CONDITION.
--- NOTE | 2019-02-27 07:31 | NUR ---
RECEIVED REPORT FROM CIVIL DIVISION DEPUTY SHERIFF NURSE PT IS IN BED IN STABLE CONDITION. CALL LIGHT IN REACH.
[2019-02-27] MEDS ORDERED: FAMOTIDINE 20 MG TAB PO SCH (09:00)
[2019-02-27] MEDS: LISINOPRIL 10 MG TAB PO SCH (09:12)
[2019-02-27] MEDS: hydrALAZINE 25 MG TAB PO SCH ×3 (09:12→17:22)
[2019-02-27] MEDS: DOCUSATE SODIUM 100 MG GELCAP PO SCH ×2 (09:12→21:00)
--- NOTE | 2019-02-27 09:30 | NUR ---
PT IS IN BED INSTABLE CONDITION. PT'S FAMILY BE BEDSIDE. CALL LIGHT IN REACH.
--- NOTE | 2019-02-27 11:30 | NUR ---
PT IS IN BED STABLE CONDITION. PT'S FAMILY BE BEDSIDE. NO DISTRESS NOTED. CALL LIGHT IN REACH.
[2019-02-27] MEDS: CALCIUM ACETATE 667 MG TAB PO SCH ×2 (12:38→17:21)
--- NOTE | 2019-02-27 13:30 | NUR ---
PT IS IN BED STABLE CONDITION. PT'S FAMILY BE BEDSIDE. CALL LIGHT IN REACH.
[2019-02-27] MEDS: MORPHINE SULFATE 2 MG/ML SYR IVP PRN ×3 (13:31→22:32)
--- NOTE | 2019-02-27 15:40 | NUR ---
PT IS OFF UNIT TO RADIOLOGY DEPARTMENT FOR A CT SCAN OF THE LEG.
--- NOTE | 2019-02-27 16:00 | NUR ---
PT IS BACK ON THE UNIT. FAMILY BE BEDSIDE CALL LIGHT IN REACH.
[2019-02-27] MEDS: NACL 0.9% 1,000 ML IV SCH (18:36)
--- NOTE | 2019-02-27 19:15 | NUR ---
RECEIVED REPORT FROM AM NURSE RN SU, PT AT BED AWAKE, ALERT AND ORIENTED X4, PERRLA 3MM, BRISK, COOPERATIVE, CALM, PT BREATHING REGULARLY ON ROOM AIR, LUNG SOUNDS, CLEAR THROUGHOUT, HEART RATE REGULAR, SR ON MONITOR, S1S2 PRESENT, CAP REFILL <3S, PULSES 2+ BILATERAL UPPER AND LOWER EXTREMITIES, ABDOMEN, SOFT, ROUND, NONDISTENDED, NONTENDER, BLADDER, SOFT, ROUND, NONDISTENDED, NONTENDER, PT SKIN INTACT, HEALED ABRASION AT LEFT ELBOW, RIGHT KNEE IMMOBILIZER IN PLACE, SKIN, WARM, DRY. PT HAS RIGHT AC PERIPHERAL IV 20 GAUGE RUNNING NS AT 10 ML/HR. HOB 30 DEGREES, SIDE RAILS UP X2, BED AT LOWEST POSITION.
--- NOTE | 2019-02-27 19:40 | NUR ---
SHIFT REPORT GIVEN TO ESTIMATOR PROJECT MANAGER NURSE. PT IS IN STABLE CONDITION. CALL LIGHT IN REACH.
--- NOTE | 2019-02-27 21:30 | NUR ---
MEDICATIONS GIVEN. PT TOLERATED MEDICATIONS WELL.
--- NOTE | 2019-02-27 23:15 | NUR ---
PT COMPLAINING OF WARM ROOM. AGITATED. CHECKED TEMPERATURE 98.4 F ORAL.
[2019-02-28] VITALS: BP 112/60
--- NOTE | 2019-02-28 01:27 | NUR ---
PT AT BED AWAKE, FAMILY AT BEDSIDE. BREATHING REGULARLY ON MONITOR. PT REMOVED BILATERAL LEG BRACES. PT REFUSED TO PUT IT ON. WILL CONTINUE TO MONITOR.
[2019-02-28] MEDS ORDERED: LORazepam 2 MG/ML VIAL IVP ONE (01:30)
--- NOTE | 2019-02-28 03:25 | NUR ---
PT AT BED AWAKE, FAMILY AT BEDSIDE, BREATHING REGULARLY ON ROOM AIR.
[2019-02-28 04:00] VITALS: BP 110/60
[2019-02-28] MEDS ORDERED: oxyCODONE 10 MG TABER PO PRN (06:30)
--- NOTE | 2019-02-28 07:02 | NUR ---
CHANGE OF SHIFT REPORT GIVEN TO AM NURSE. PT AT STABLE CONDITION AT THIS TIME.
[2019-02-28] MEDS: MORPHINE SULFATE 2 MG/ML SYR IVP PRN ×2 (07:19→13:51)
--- NOTE | 2019-02-28 07:25 | NUR ---
RECEIVED REPORT FROM LACE STRIPPER NURSE. PATIENT IS FULL CODE, NKA, MOTHER AT BEDSIDE. PATIENT IS AWAKE AND ALERT AAOX4. PT HAS A L ARM FISTULA. IV TO RIGHT AC 20G SALINE LOCK. PATIENT IS ON A LOW K DIET. WILL REVIEW AND CONTINUE WITH PLAN OF CARE FOR THE DAY.
[2019-02-28 07:42] LABS: BASOPHILS % (AUTO) 0.8 % (0.0-2.0); EOSINOPHILS # (AUTO) 0.4 K/uL (0-0.4); EOSINOPHILS % (AUTO) 7.2 % (0.0-4.0); HEMATOCRIT 24.8 % (36-52); HEMOGLOBIN 8.5 g/dL (12.0-18.0); LYMPHOCYTES # (AUTO) 1.4 K/uL (2.0-11.5); LYMPHOCYTES % (AUTO) 25.6 % (20.5-51.1); MEAN CORPUSCULAR HEMOGLOBIN 33 pg (27-31); MEAN CORPUSCULAR HGB CONC 34 g/dL (33-37); MEAN CORPUSCULAR VOLUME 97.7 fL (80-94); MONOCYTES # (AUTO) 0.4 K/uL (0.8-1.0); MONOCYTES % (AUTO) 7.7 % (1.7-9.3); NEUTROPHILS # (AUTO) 3.3 K/uL (1.8-7.7); NEUTROPHILS % (AUTO) 58.7 % (42.2-75.2); PLATELET COUNT (AUTO) 119 K/uL (140-450); RED BLOOD CELL COUNT(AUTO) 2.54 MIL/uL (4.20-6.10); RED CELL DISTRIBUTION WIDTH 13.9 % (11.6-13.7); WHITE BLOOD COUNT (AUTO) 5.5 K/uL (4.8-10.8)
[2019-02-28 07:44] LABS: ANION GAP 14.5 (8-16); CARBON DIOXIDE 30.1 mmol/L (21-32)
--- NOTE | 2019-02-28 07:50 | NUR ---
RECEIVED CRITICAL LAB VALUE OF K 6.6, CA 10.3, BUN 51, CREA 11.8. PATIENT IS TO RECEIVE HEMODIALYSIS TODAY. CALLED [facility] NURSE TO CONFIRM PATIENT IS ON THE SCHEDULE FOR TODAY.
[2019-02-28 07:53] LABS: CREATININE 11.8 mg/dL (0.7-1.3); POTASSIUM 6.6 mmol/L (3.5-5.1)
[2019-02-28 07:56] LABS: MAGNESIUM 2.1 mg/dL (1.8-2.4); PHOSPHORUS 7.4 mg/dL (2.5-4.9)
[2019-02-28 08:00] VITALS: BP 135/85
[2019-02-28] MEDS: CALCIUM ACETATE 667 MG TAB PO SCH ×2 (08:00→11:58)
--- NOTE | 2019-02-28 08:15 | NUR ---
PATIENT HAS BEEN SCREENED AND CATEGORIZED MODERATE NUTRITION RISK. PATIENT WILL BE SEEN WITHIN 3-5 DAYS OF ADMISSION. 03/01/19 03/03/[address]
[2019-02-28] MEDS: DOCUSATE SODIUM 100 MG GELCAP PO SCH (08:26)
[2019-02-28] MEDS: hydrALAZINE 25 MG TAB PO SCH ×2 (08:26→13:00)
[2019-02-28] MEDS: LISINOPRIL 10 MG TAB PO SCH (08:27)
--- NOTE | 2019-02-28 08:27 | NUR ---
DID NOT ADMINISTER MORNING MEDICATION D/T HEMODIALYSIS TODAY. PATIENT REFUSED COLACE. ADMINISTERED HEPARIN SUBQ INJECTION IN ABDOMEN. NO COMPLAINTS AT THIS TIME. FAMILY AT BEDSIDE.
[2019-02-28] MEDS ORDERED: VIT-B COMP/VIT-C/FOLIC ACID 1 TAB PO SCH (09:00)
[2019-02-28] MEDS ORDERED: CINACALCET 30 MG TAB PO SCH (09:00)
--- NOTE | 2019-02-28 10:00 | NUR ---
HEMODIALYSIS NURSE IS HERE FOR HD TREATMENT.
[2019-02-28] MEDS ORDERED: APIX2.5 PO (10:40)
--- NOTE | 2019-02-28 10:54 | NUR ---
Seo Executive Note: Basic Screen: Yes High Risk DC Screen [place] Agency: DENNIS Santos Relationship: SISTER Pre-Admission Living Arrangements: Lives with Other Prior ADL Independent Current Home Health Name/Tel: N/A Current DME/02 Name/Tel: N/A Current Hospice Name/Tel: N/A Current Dialysis Name/Tel: [facility] Healthcare Decision Maker: Patient Advance Directive No - REFUSED Physician Orders for Life Sustaining Treatment Form No Patient/Family Have Educational Needs No Information Taught: Advance Directive Person Taught: Patient Teaching Tools: Verbal Factors Affecting Learning: None Participation Level: Refused Evaluation: Verbalizes Understanding Needs Additional Education: No Discipline: Case Mgt/Social Svcs Tentative Discharge Plan/Destination: No Needs Identified Will require assistance post discharge: No Referred to Monument Setter Helper: No Tentative Discharge Plan Summary: Patient is a 33-year-old male admitted for ESRD. 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 Patient was admitted from home. SW met with patient at bedside to verify demographics. Patient stated that he receives dialysis at [facility] and Thursday. Patient reports no mental health history and no substance abuse history. SW provided education on advanced directive. Patient refused. Patient's tentative discharge plan is to return home. No further needs identified. Signature: AUGUSTUS Ramírez Date: Feb 28, 2019 Time: 10:53
[2019-02-28 12:00] VITALS: BP 115/83
--- NOTE | 2019-02-28 16:29 | NUR ---
DC PLANING: PATIENT HAS A DC ORDER PER REQUEST HE WANTED SOMEONE TO HELP HIM TO GO TO THE 2ND FLOOR. CALLED [facility] ARRANGED GURNEY TRANSPORT AND WILL HELP HIM TO GO TO THE 2ND FLOOR, [facility] ARRANGED TRANSPORT WITH [facility] TRANSPORT CONSTRUCTION EQUIPMENT OVERHAULER TIME 5 PM CALLED NICKIE [phone] SPOKE WITH ERIN WILL DELIVER THE WHEELCHAIR AT HOME .
[2019-03-02] MEDS ORDERED: EPOETIN ALFA 10,000 UNITS/ML VIAL IV SCH (09:00)
== END 2019-02-28 17:35 | disposition home or self-care (01) | DRG 913 ==
LOC: MED 12:23 → MIC 18:36 → MTU 02-27 07:42
PROVIDERS: ADMIT General Practice; ATTEND General Practice
PROC: 5A1D70Z Performance of Urinary Filtration, Intermittent, Less than 6 Hours Per Day (ICD-10-PCS; principal; 2019-02-26)
PROC: 2W3 Placement, Anatomical Regions, Immobilization (ICD-10-PCS; 2019-02-26)
PROC: 2W38XYZ Immobilization of Right Upper Extremity using Other Device (ICD-10-PCS; 2019-02-26)
DX: S76.192A Other specified injury of left quadriceps muscle, fascia and tendon, initial encounter (principal); N17.0 Acute kidney failure with tubular necrosis; N18.6 End stage renal disease; I12.0 Hypertensive chronic kidney disease with stage 5 chronic kidney disease or end stage renal disease; S76.191A Other specified injury of right quadriceps muscle, fascia and tendon, initial encounter; E87.5 Hyperkalemia; D63.8 Anemia in other chronic diseases classified elsewhere; E83.39 Other disorders of phosphorus metabolism; W19.XXXA Unspecified fall, initial encounter; Y93.89 Activity, other specified; Y92.89 Other specified places as the place of occurrence of the external cause; Y99.8 Other external cause status
CPT/HCPCS: 29505; 36415; 71045; 73060; 73560; 73700; 80048; 80053; 82550; 82948; 83036; 83735; 83880; 84100; 84132; 84443; 84484; 85025; 85610; 85730; 87081; 93005; 96374; 96375; 96376; 99285; J1644; J1815; J2270; J2405; J7030; Q0092

== ENCOUNTER 2023-05-08 19:01 | Inpatient (IN) | payer OTHER ==
[~2023-05-08] VITALS: Ht 170.2 cm; Wt 77.1 kg
[~2023-05-08 19:01] MED LIST changes: +APIX2.5 PO; +CALC667C12 PO; -CLIN300C2 IV; +LISI-486 PO; -PHO667 PO
[2023-05-08 19:15] VITALS: BP 177/106; PULSE 111; RESP 20; TEMP 98; O2SAT 100
[2023-05-08 20:38] LABS: BASOPHILS % (AUTO) 0.2 % (0.0-2.0); EOSINOPHILS % (AUTO) 0.8 % (0.0-4.0); HEMATOCRIT 25.9 % (36-52); HEMOGLOBIN 9.1 g/dL (12.0-18.0); LYMPHOCYTES # (AUTO) 0.1 K/uL (2.0-11.5); LYMPHOCYTES % (AUTO) 5.3 % (20.5-51.1); MEAN CORPUSCULAR HEMOGLOBIN 29 pg (27-31); MEAN CORPUSCULAR HGB CONC 35 g/dL (33-37); MEAN CORPUSCULAR VOLUME 83.4 fL (80-94); MONOCYTES # (AUTO) 0.3 K/uL (0.8-1.0); MONOCYTES % (AUTO) 9.4 % (1.7-9.3); NEUTROPHILS # (AUTO) 2.4 K/uL (1.8-7.7); NEUTROPHILS % (AUTO) 84.3 % (42.2-75.2); PLATELET COUNT (AUTO) 204 K/uL (140-450); RED BLOOD CELL COUNT(AUTO) 3.11 MIL/uL (4.20-6.10); RED CELL DISTRIBUTION WIDTH 17.4 % (11.6-13.7); WHITE BLOOD COUNT (AUTO) 2.8 K/uL (4.8-10.8)
[2023-05-08 20:52] LABS: ANION GAP 14.6 (8-16); CALCIUM 8.5 mg/dL (8.5-10.1); CARBON DIOXIDE 30.1 mmol/L (21-32); POTASSIUM 4.7 mmol/L (3.5-5.1)
[2023-05-08 20:58] LABS: ALANINE AMINOTRANSFERASE 33 U/L (12-78); ALBUMIN 3.8 g/dL (3.4-5.0); ALKALINE PHOSPHATASE 86 U/L (50-136); ASPARTATE AMINOTRANSFERASE 25 U/L (15-37); BILIRUBIN,DIRECT 0.2 mg/dL (0.0-0.3); CREATINE KINASE, TOTAL 83 U/L (39-308); TOTAL BILIRUBIN 0.5 mg/dL (0.0-1.0); TOTAL PROTEIN, SERUM 7.8 g/dL (6.4-8.2)
[2023-05-08 21:01] LABS: LACTIC ACID 0.7 mmol/L (0.4-2.0)
[2023-05-08] MEDS ORDERED: VANCOMYCIN 1,000 MG VIAL ONE (21:57)
[2023-05-08] MEDS ORDERED: PIPERACILLIN/TAZOBACTAM 3.375 GM VIAL IV ONE (21:57)
[2023-05-08] MEDS: PIPERACILLIN/TAZOBACTAM 3.375 GM in DEXTROSE 5% 50 ML IV ONE (22:00)
[2023-05-08] MEDS: VANCOMYCIN 1,000 MG in DEXTROSE 5% 250 ML IV ONE (22:00)
[2023-05-08 22:16] LABS: APPEARANCE,URINE CLEAR (CLEAR); BILIRUBIN,URINE NEGATIVE (NEGATIVE); BLOOD, URINE NEGATIVE (NEGATIVE); COLOR,URINE YELLOW (YELLOW); LEUKOCYTE ESTERASE ,URINE NEGATIVE (NEGATIVE); NITRITE, URINE NEGATIVE (NEGATIVE); PH,URINE 8.5 (5.0-9.0); PROTEIN,URINE 3+ (NEGATIVE); UGLUCOSE NEGATIVE (NEGATIVE); UROBILINOGEN,URINE 0.2 EU/dL (0.2 - 1)
[2023-05-08 22:43] LABS: BACTERIA,URINE OCCASSIONAL /HPF (None Seen); RBC,URINE 0-5 /HPF (0-5); SQUAMOUS EPITHELIAL CELL,UR 0-3 (FEW) /LPF (0-3 (FEW)); WBC,URINE 0-5 /HPF (0-5)
[2023-05-08] MEDS: NACL 0.9% 250 ML IV ONE (22:49)
[2023-05-08] MEDS: ALBUTEROL SULFATE/IPRATROPIU 3 ML SOL IH ONE (23:51)
[2023-05-08 23:59] VITALS: PULSE 108; RESP 24; O2SAT 93
[2023-05-09] VITALS (11 sets, daily range): BP systolic 138–168; BP diastolic 90–101; PULSE 91–132; RESP 18–20; TEMP 97.6–98.5; O2SAT 93–99
[2023-05-09] MEDS: ACETAMINOPHEN EXTRA STRENGTH 500 MG TAB PO ONE (00:02)
[2023-05-09] MEDS: ONDANSETRON 4 MG/2 ML VIAL IVP ONE (00:50)
[2023-05-09] MEDS: hydrALAZINE 20 MG/ML VIAL IVP PRN (06:15)
[2023-05-09 07:51] LABS: BASOPHILS % (AUTO) 0.2 % (0.0-2.0); EOSINOPHILS # (AUTO) 0.1 K/uL (0-0.4); HEMATOCRIT 24.2 % (36-52); HEMOGLOBIN 8.3 g/dL (12.0-18.0); LYMPHOCYTES # (AUTO) 0.2 K/uL (2.0-11.5); LYMPHOCYTES % (AUTO) 9.5 % (20.5-51.1); MEAN CORPUSCULAR HEMOGLOBIN 29 pg (27-31); MEAN CORPUSCULAR HGB CONC 35 g/dL (33-37); MEAN CORPUSCULAR VOLUME 83.9 fL (80-94); MONOCYTES # (AUTO) 0.3 K/uL (0.8-1.0); MONOCYTES % (AUTO) 11.3 % (1.7-9.3); NEUTROPHILS # (AUTO) 1.8 K/uL (1.8-7.7); PLATELET COUNT (AUTO) 176 K/uL (140-450); RED BLOOD CELL COUNT(AUTO) 2.88 MIL/uL (4.20-6.10); RED CELL DISTRIBUTION WIDTH 17.4 % (11.6-13.7); WHITE BLOOD COUNT (AUTO) 2.4 K/uL (4.8-10.8)
[2023-05-09 08:16] LABS: ANION GAP 13.7 (8-16); CALCIUM 7.7 mg/dL (8.5-10.1); CARBON DIOXIDE 28.5 mmol/L (21-32); POTASSIUM 4.2 mmol/L (3.5-5.1); TOTAL BILIRUBIN 0.5 mg/dL (0.0-1.0); TOTAL PROTEIN, SERUM 7.2 g/dL (6.4-8.2)
[2023-05-09 08:22] LABS: CREATININE 4.4 mg/dL (0.6-1.3)
[2023-05-09] MEDS ORDERED: POTASSIUM CHLORIDE 10 MEQ TABER PO PRN (09:40)
[2023-05-09] MEDS ORDERED: HYDROcodone/APAP 5/325 MG 1 TAB TAB PO PRN (09:40)
[2023-05-09] MEDS ORDERED: MELATONIN 3 MG TAB PO PRN (09:40)
[2023-05-09] MEDS ORDERED: MAG SULF 2000 MG/WATER PREMIX 50 ML IV PRN (09:40)
[2023-05-09] MEDS ORDERED: ONDANSETRON 4 MG/2 ML VIAL IVP PRN (09:40)
[2023-05-09] MEDS ORDERED: POLYETHYLENE GLYCOL 17 GM/PKT PO PRN (09:40)
[2023-05-09 10:07] LABS: ALBUMIN 3.6 g/dL (3.4-5.0)
[2023-05-09] MEDS: ACETAMINOPHEN 325 MG TAB PO PRN (10:23)
[2023-05-09] MEDS: hydrALAZINE 25 MG TAB PO SCH (12:03)
[2023-05-09] MEDS: MORPHINE SULFATE 2 MG/ML SYR IVP PRN (12:04)
[2023-05-09] MEDS ORDERED: PANT40EC PO (12:33)
[2023-05-09] MEDS ORDERED: SODI650T2 PO (12:33)
[2023-05-09] MEDS ORDERED: PRED10TA5 PO (12:33)
[2023-05-09] MEDS ORDERED: HYDR100T79 PO (12:33)
[2023-05-09] MEDS ORDERED: CLON0.1T16 PO (12:33)
[2023-05-09] MEDS ORDERED: [UNRECOGNIZED DRUG - CODE] PO (12:33)
[2023-05-09] MEDS ORDERED: CEL250 PO (12:33)
[2023-05-09] MEDS ORDERED: CALC0.5S6 PO (12:33)
[2023-05-09] MEDS ORDERED: MULT-1469 PO (12:33)
[2023-05-09] MEDS ORDERED: NIFE90TE3 PO (12:33)
[2023-05-09 12:46] LABS: FLU A ANTIGEN negative (NEGATIVE); FLU B ANTIGEN NEGATIVE (NEGATIVE)
[2023-05-09] MEDS: APIXABAN 2.5 MG TAB PO SCH (15:17)
[2023-05-09] MEDS: METOPROLOL 50 MG TAB PO SCH (15:18)
[2023-05-09] MEDS: AMIODARONE 200 MG TAB PO SCH (15:18)
[2023-05-09] MEDS: DIGOXIN 0.25 MG/ML AMP IV SCH ×2 (15:18→21:33)
[2023-05-09] MEDS: SODIUM BICARBONATE 650 MG TAB PO SCH (16:52)
[2023-05-09] MEDS ORDERED: PHARMACY TO DOSE MC PRN (17:25)
[2023-05-09] MEDS ORDERED: VANCOMYCIN PER PHARMACY MC PRN (17:25)
[2023-05-09] MEDS: VANCOMYCIN 1,000 MG VIAL ONE (17:59)
[2023-05-09] MEDS: VANCOMYCIN 500 MG VIAL ONE (17:59)
[2023-05-09] MEDS: PIPERACILLIN/TAZOBACTAM 4.5 GM VIAL IV ONE (17:59)
[2023-05-09] MEDS: VANCOMYCIN 1.25GM PREMIX 250 ML IV ONE (18:00)
[2023-05-09] MEDS: PIPERACILLIN/TAZOBACTAM 4.5 GM in NACL 0.9% 100 ML IV ONE (18:00)
[2023-05-09] MEDS: MYCOPHENOLATE 250 MG CAP PO SCH (21:29)
[2023-05-10] VITALS (10 sets, daily range): BP systolic 138–177; BP diastolic 86–105; PULSE 47–90; RESP 18–20; TEMP 97.7–98.1; O2SAT 99–100
[2023-05-10] MEDS: DIGOXIN 0.25 MG/ML AMP IV SCH (03:32)
[2023-05-10 07:07] LABS: BASOPHILS % (AUTO) 0.5 % (0.0-2.0); EOSINOPHILS # (AUTO) 0.1 K/uL (0-0.4); EOSINOPHILS % (AUTO) 3.6 % (0.0-4.0); HEMATOCRIT 22.4 % (36-52); HEMOGLOBIN 7.6 g/dL (12.0-18.0); LYMPHOCYTES # (AUTO) 0.3 K/uL (2.0-11.5); LYMPHOCYTES % (AUTO) 9.4 % (20.5-51.1); MEAN CORPUSCULAR HEMOGLOBIN 29 pg (27-31); MEAN CORPUSCULAR HGB CONC 34 g/dL (33-37); MEAN CORPUSCULAR VOLUME 85.5 fL (80-94); MONOCYTES # (AUTO) 0.3 K/uL (0.8-1.0); MONOCYTES % (AUTO) 9.9 % (1.7-9.3); NEUTROPHILS # (AUTO) 2.4 K/uL (1.8-7.7); NEUTROPHILS % (AUTO) 76.6 % (42.2-75.2); PLATELET COUNT (AUTO) 167 K/uL (140-450); RED BLOOD CELL COUNT(AUTO) 2.62 MIL/uL (4.20-6.10); RED CELL DISTRIBUTION WIDTH 17.6 % (11.6-13.7); WHITE BLOOD COUNT (AUTO) 3.1 K/uL (4.8-10.8)
[2023-05-10 07:28] LABS: ALBUMIN 3.3 g/dL (3.4-5.0); ANION GAP 13.9 (8-16); CARBON DIOXIDE 26.3 mmol/L (21-32); MAGNESIUM 1.5 mg/dL (1.8-2.4); PHOSPHORUS 3.7 mg/dL (2.5-4.9); POTASSIUM 5.2 mmol/L (3.5-5.1); TOTAL BILIRUBIN 0.3 mg/dL (0.0-1.0); TOTAL PROTEIN, SERUM 6.4 g/dL (6.4-8.2)
[2023-05-10 07:30] LABS: CREATININE 5.3 mg/dL (0.6-1.3)
[2023-05-10] MEDS: PIPERACILLIN/TAZOBACTAM 2.25 GM in DEXTROSE 5% 50 ML IV SCH (08:39)
[2023-05-10] MEDS: VIT-B COMP/VIT-C/FOLIC ACID 1 TAB PO SCH (08:41)
[2023-05-10] MEDS: predniSONE 10 MG TAB PO SCH (08:41)
[2023-05-10] MEDS: PANTOPRAZOLE 40 MG TABEC PO SCH (08:42)
[2023-05-10] MEDS: hydrALAZINE 20 MG/ML VIAL IVP PRN (08:48)
[2023-05-10] MEDS ORDERED: NIFEdipine 90 MG TABER PO SCH (09:00)
[2023-05-10] MEDS ORDERED: lisinopriL 10 MG TAB PO SCH (09:00)
[2023-05-10] MEDS ORDERED: FURO-570 PO (09:44)
[2023-05-10] MEDS: FUROSEMIDE 40 MG TAB PO SCH (13:05)
[2023-05-10] MEDS: CLONIDINE HYDROCHLORIDE 0.1 MG TAB PO SCH (13:07)
[2023-05-10] MEDS ORDERED: LABETALOL 20 MG/4 ML VIAL IVP PRN (14:35)
[2023-05-10] MEDS: NIFEdipine 90 MG TABER PO SCH (14:54)
[2023-05-10] MEDS ORDERED: carvediloL 12.5 MG TAB PO SCH (21:00)
[2023-05-11] MEDS ORDERED: FUROSEMIDE 40 MG TAB PO SCH (09:00)
== END 2023-05-10 14:30 | disposition left against medical advice (07) | DRG 308 ==
LOC: MED 19:01 → MTU 05-09 03:35
PROVIDERS: ADMIT Student in an Organized Health Care Education/Training Program; ATTEND Student in an Organized Health Care Education/Training Program
DX: I48.92 Unspecified atrial flutter (principal); N18.6 End stage renal disease; I12.0 Hypertensive chronic kidney disease with stage 5 chronic kidney disease or end stage renal disease; T86.11 Kidney transplant rejection; R11.0 Nausea; Z20.822 Contact with and (suspected) exposure to COVID-19; R50.9 Fever, unspecified; R42 Dizziness and giddiness; D64.9 Anemia, unspecified; Z79.899 Other long term (current) drug therapy; Y99.8 Other external cause status
CPT/HCPCS: 36415; 71045; 78580; 80048; 80053; 80076; 81001; 82550; 83605; 83735; 83880; 84100; 84484; 85025; 85379; 87040; 87081; 87086; 93005; 94640; 96365; 96375; 99291; A9540; J0360; J1160; J1644; J2270; J2405; J2543; J3370; J3372; J7060; J7512; J7517